=== PATIENT | female | born 1980 | race Two or more races ===

== ENCOUNTER 2024-01-11 05:20 | Day surgery (SDC) | payer OTHER ==
[2024-01-05 12:01] LABS: HEMATOCRIT 38.7 % (36.0-45.00); HEMOGLOBIN 12.7 g/dL (12.0-15.00); MEAN CELL VOLUME 84.3 fL (80.00-100.00); MEAN CORPUSCULAR HEMOGLOBIN 27.6 pg (27.00-32.0); MEAN CORPUSCULAR HGB CONC 32.8 g/dl (32.0-36.0); PLATELET COUNT 311 K/uL (150-450); RED CELL DISTRIBUTION WIDTH 14.1 % (11.5-14.5)
[2024-01-05 12:23] VITALS: BP 106/50
[2024-01-05 13:01] LABS: ALBUMIN 3.6 gm/dL (3.4-5.0); BILIRUBIN TOTAL 0.56 mg/dL (0.3-1.2); CALCIUM 11.1 mg/dL (8.5-10.1); CREATININE SERUM 0.59 mg/dL (0.55-1.02); GFR 111.24; GLOBULINA 3.7 G/DL (2.4-3.5); INR 1.03; PARTIAL THROMBOPLASTIN TIME 28.3 SECONDS (22.0-34.0); POTASSIUM 4.2 mEq/L (3.5-5.1); PROTHROMBIN TIME 11.2 SECONDS (9.0-11.5); TOTAL PROTEIN 7.3 gm/dL (6.4-8.2)
[2024-01-05 13:33] LABS: PH,URINE 6.5 (5.0-8.0); URINE APPEARANCE Clear; URINE BILIRRUBIN Negative (NEGATIVE); URINE BLOOD Moderate; URINE COLOR Yellow; URINE GLUCOSE Negative (NEGATIVE); URINE KETONE Negative (NEGATIVE); URINE LEUKOCYTE Negative; URINE NITRATE Negative; URINE PROTEIN Negative (NEGATIVE)
[2024-01-05 13:34] LABS: URINE BACTERIA 205.3 uL (0.0-1933); URINE RBC 26.7 uL (0.0-20.8); URINE WBC 5.1 uL (0.0-23.2)
[2024-01-05 13:48] LABS: URINE CAST 0.45 uL (0.0-1.40)
[~2024-01-11] VITALS: Ht 160 cm; Wt 70.8 kg
[2024-01-11] MEDS ORDERED: DEXAMETHASONE SODIUM PHOSP/PF 10 MG/ML VIAL IV ONE (14:15)
[2024-01-11] MEDS ORDERED: CEFAZOLIN SODIUM 1,000 MG VIAL IV ONE (14:15)
[2024-01-11] MEDS ORDERED: MORPHINE SULFATE 4 MG/ML VIAL IV ONE ×2 (17:05→17:35)
== END 2024-01-11 19:05 | disposition home or self-care (01) ==
LOC: O/R 05:20 → SURH 05:20 → CIR.AMB 05:20 → EDSTATUS 11:15 → SURH 11:15 → CIR.AMB 19:05 → O/R 19:05
PROVIDERS: ATTEND Surgery
DX: D35.1 Benign neoplasm of parathyroid gland (principal); E21.0 Primary hyperparathyroidism

== ENCOUNTER 2024-02-05 09:33 | Emergency (ER) | payer OTHER ==
[~2024-02-05] VITALS: Ht 160 cm; Wt 70.3 kg
[2024-02-05] MEDS ORDERED: KETOROLAC TROMETHAMINE 60 MG VIAL IM SCH (11:00)
[2024-02-05 11:46] LABS: HEMATOCRIT 39.1 % (36.0-45.00); MEAN CELL VOLUME 84.1 fL (80.00-100.00); MEAN CORPUSCULAR HEMOGLOBIN 27.9 pg (27.00-32.0); MEAN CORPUSCULAR HGB CONC 33.2 g/dl (32.0-36.0); PLATELET COUNT 332 K/uL (150-450); RED BLOOD COUNT 4.65 M/uL (4.00-6.00); RED CELL DISTRIBUTION WIDTH 13.3 % (11.5-14.5)
[2024-02-05 12:05] LABS: CALCIUM 8.7 mg/dL (8.5-10.1); CREATININE SERUM 0.67 mg/dL (0.55-1.02); GFR 96.06; POTASSIUM 3.88 mEq/L (3.5-5.1)
[2024-02-05 12:22] LABS: PH,URINE 5.5 (5.0-8.0); URINE APPEARANCE Cloudy; URINE BILIRRUBIN Small (NEGATIVE); URINE COLOR Dark Yellow; URINE GLUCOSE Negative (NEGATIVE); URINE LEUKOCYTE Small; URINE NITRATE Positive; URINE PROTEIN 30 (NEGATIVE)
[2024-02-05 12:27] LABS: URINE BACTERIA 103.3 uL (0.0-1933); URINE EPITHELIAL CELLS 90.1 uL (0.0-38.8); URINE RBC 85.2 uL (0.0-20.8); URINE WBC 23.8 uL (0.0-23.2)
[2024-02-05 12:54] LABS: URINE BLOOD TRACES; URINE KETONE 80 (NEGATIVE)
[2024-02-05 12:55] LABS: URINE YEAST MODERATE /hpf
== END 2024-02-05 17:43 | disposition home or self-care (01) ==
LOC: ER 09:35
PROVIDERS: General Practice
DX: N39.0 Urinary tract infection, site not specified (principal)